=== PATIENT | female | born 1985 | race African-American/Black ===

== ENCOUNTER 2021-02-03 10:59 | Outpatient (CLI) | payer OTHER ==
[2021-02-04 10:22] LABS: SARS-CoV-2 PCR by NAA Not Detected (NotDetected)
== END 2021-02-03 11:00 | disposition home or self-care (01) ==
LOC: CSHLAB 10:59
PROVIDERS: ATTEND Obstetrics & Gynecology
DX: Z20.822 Contact with and (suspected) exposure to COVID-19 (principal)
CPT/HCPCS: U0003; U0005

== ENCOUNTER 2021-02-04 19:15 | Inpatient (IN) | payer OTHER ==
[2021-02-04] MEDS ORDERED: Acetaminophen 500 MG TAB PO PRN (20:13)
[2021-02-04] MEDS ORDERED: Ibuprofen 800 MG TAB PO PRN (20:13)
[2021-02-04] MEDS ORDERED: Butorphanol Tartrate 1 MG/ML VIAL SLOW IVP PRN (20:13)
[2021-02-04] MEDS ORDERED: Misoprostol 200 MCG TAB PR PRN (20:13)
[2021-02-04] MEDS ORDERED: HYDROcodone/Acetaminophen 5/325 mg Tablet PO PRN (20:13)
[2021-02-04] MEDS ORDERED: Methylergonovine 0.2 MG/ML VIAL IM PRN (20:13)
[2021-02-04] MEDS ORDERED: Promethazine HCl 25 MG/ML VIAL IM PRN (20:13)
[2021-02-04] MEDS ORDERED: Lidocaine 1% (PF) 30 ML VIAL SC PRN (20:13)
[2021-02-04] MEDS ORDERED: Diphenoxylate HCl/Atropine Tablet PO PRN ×2 (20:13)
[2021-02-04] MEDS ORDERED: Ondansetron PF 4 MG/2 ML Vial IVP PRN (20:13)
[2021-02-04] MEDS ORDERED: Carboprost 250 MCG/ML AMP IM PRN (20:13)
[2021-02-04] MEDS ORDERED: hydrALAZINE 20 MG/ML VIAL SLOW IVP PRN (20:13)
[2021-02-04 21:01] LABS: Mean Corpuscular HGB CONC 31.9 g/dL (32.0-36.0); Mean Corpuscular Hemoglobin 27.1 pg (27.0-33.0); Mean Platelet Volume 10.6 fl (7.4-10.4); Platelet Count 228 10x3/uL (150-450); Red Blood Cell (RBC) Count 4.06 10x6/uL (3.90-5.03); White Blood Cell (WBC) Count 7.6 10x3/uL (3.5-10.5)
[2021-02-04 21:18] VITALS: BMI 40.8
[2021-02-04 21:32] LABS: Syphilis Antibody Nonreactive (Nonreactive); Syphilis Antibody Index 0.05 S/CO (<1.00 Non-Reactive)
[2021-02-04 21:34] LABS: Hep B Surf Ag Non-Reactive S/CO (NonReactive)
[2021-02-04] MEDS: Misoprostol 100 MCG TAB VAG SCH (21:45)
[2021-02-04] MEDS ORDERED: NS w/ Oxytocin 30 units 500 ML IVPB SCH (22:00)
[2021-02-04] MEDS ORDERED: NS w/ Oxytocin 30 units 500 ML IV SCH ×2 (22:00)
[2021-02-04] MEDS ORDERED: Terbutaline Sulfate 1 MG/ML VIAL SC SCH (23:45)
[2021-02-05] MEDS ORDERED: Terbutaline Sulfate 1 MG/ML VIAL ONE (01:05)
[2021-02-05] MEDS ORDERED: Azithromycin 500 MG VIAL ONE (01:35)
[2021-02-05] MEDS ORDERED: Fentanyl 2 mcg/Bup 0.1% Cadd 100 ML ONE (02:03)
[2021-02-05] MEDS ORDERED: diphenhydrAMINE 50 MG/ML VIAL IVP PRN (02:55)
[2021-02-05] MEDS ORDERED: Hydrocerin (Eucerin) Cream 120 gm Jar TOP PRN (02:55)
[2021-02-05] MEDS ORDERED: Naloxone HCl 0.4 mg/ml Vial IVP PRN ×2 (02:55)
[2021-02-05] MEDS ORDERED: Ondansetron PF 4 MG/2 ML Vial IVP PRN ×2 (02:55→10:11)
[2021-02-05] MEDS ORDERED: Acetaminophen 325 MG TAB PO PRN (02:55)
[2021-02-05] MEDS ORDERED: Lactated Ringer's 500 ML IV PRN (02:55)
[2021-02-05] MEDS ORDERED: ePHEDrine Sulfate 50 MG/10 ML VIAL SLOW IVP PRN (02:55)
[2021-02-05] MEDS ORDERED: Promethazine HCl 25 MG/ML VIAL IM PRN ×2 (02:55→10:11)
[2021-02-05] MEDS ORDERED: Communication Order-Pharmacy FS SCH (03:00)
[2021-02-05] MEDS ORDERED: Fentanyl 2 mcg/Bupivacaine 0.1% Cassette 100 ML EPIDURAL SCH (03:00)
[2021-02-05] MEDS: Lactated Ringer's 1,000 ML IV SCH ×2 (06:24→09:34)
[2021-02-05] MEDS: Misoprostol 100 MCG TAB VAG SCH ×2 (09:34→12:18)
[2021-02-05] MEDS ORDERED: HYDROcodone/Acetaminophen 5/325 mg Tablet PO PRN (10:11)
[2021-02-05] MEDS ORDERED: Bisacodyl 10 MG SUPP PR PRN (10:11)
[2021-02-05] MEDS ORDERED: Zolpidem Tartrate 5 MG TAB PO PRN (10:11)
[2021-02-05] MEDS ORDERED: Misoprostol 200 MCG TAB VAG PRN (10:11)
[2021-02-05] MEDS ORDERED: NS w/ Oxytocin 30 units 500 ML IV SCH (10:11)
[2021-02-05] MEDS ORDERED: Varicella virus, LIVE 0.5 ML VIAL SC ONE (10:11)
[2021-02-05] MEDS ORDERED: Milk Of Magnesia 30 ML UDCUP PO PRN (10:11)
[2021-02-05] MEDS ORDERED: Boostrix 0.5 ML (Tdap) VIAL IM ONE (10:11)
[2021-02-05] MEDS ORDERED: hydrALAZINE 20 MG/ML VIAL SLOW IVP PRN (10:11)
[2021-02-05] MEDS ORDERED: diphenhydrAMINE 25 MG CAP PO PRN (10:11)
[2021-02-05] MEDS ORDERED: Preparation H Ointment 28 GM TUBE PR PRN (10:11)
[2021-02-05] MEDS ORDERED: Lanolin Ointment 7 GM TUBE TOP PRN (10:11)
[2021-02-05] MEDS ORDERED: Benzocaine-Menthol 82.5 ML CAN TOP PRN (10:11)
[2021-02-05] MEDS ORDERED: Methylergonovine 0.2 MG/ML VIAL IM PRN (10:11)
[2021-02-05] MEDS ORDERED: Measles/Mumps/Rubella 10 MCG/0.5 ML VIAL SC ONE (10:11)
[2021-02-05] MEDS: Ibuprofen 800 MG TAB PO SCH ×2 (14:11→21:04)
[2021-02-05] MEDS: Ferrous Sulfate 325 MG TAB PO SCH (17:49)
[2021-02-05] MEDS: Docusate Calcium (SURFAK) 240 MG CAP PO SCH (21:04)
[2021-02-06] MEDS: Ibuprofen 800 MG TAB PO SCH (05:12)
[2021-02-06 05:29] LABS: Hemoglobin 9.4 g/dL (12.0-15.5); Mean Corpuscular HGB CONC 32.4 g/dL (32.0-36.0); Mean Corpuscular Hemoglobin 27.4 pg (27.0-33.0); Mean Corpuscular Volume 84.5 fl (81.6-98.3); Mean Platelet Volume 10.6 fl (7.4-10.4); Platelet Count 184 10x3/uL (150-450); RBC Distribution Width 16.5 % (11.5-14.5); Red Blood Cell (RBC) Count 3.43 10x6/uL (3.90-5.03); White Blood Cell (WBC) Count 8.8 10x3/uL (3.5-10.5)
[2021-02-06 08:01] VITALS: BP 103/57; TEMP 98.6
[2021-02-06] MEDS: Docusate Calcium (SURFAK) 240 MG CAP PO SCH (08:31)
[2021-02-06] MEDS: Ferrous Sulfate 325 MG TAB PO SCH (08:31)
[2021-02-06] MEDS ORDERED: Prenatal Vitamin 1 TAB PO SCH (09:00)
== END 2021-02-06 11:40 | disposition home or self-care (01) | DRG 807 ==
LOC: CSHLD 20:00 → CSHPP 02-05 09:10
PROVIDERS: ADMIT Obstetrics & Gynecology; ATTEND Obstetrics & Gynecology
PROC: 10E0XZZ Delivery of Products of Conception, External Approach (ICD-10-PCS; principal; 2021-02-05)
PROC: 10907ZC Drainage of Amniotic Fluid, Therapeutic from Products of Conception, Via Natural or Artificial Opening (ICD-10-PCS; 2021-02-05)
PROC: 3E0P7VZ Introduction of Hormone into Female Reproductive, Via Natural or Artificial Opening (ICD-10-PCS; 2021-02-05)
PROC: 3E033VJ Introduction of Other Hormone into Peripheral Vein, Percutaneous Approach (ICD-10-PCS; 2021-02-05)
DX: O99.214 Obesity complicating childbirth (principal); Z37.0 Single live birth; E66.01 Morbid (severe) obesity due to excess calories; O76 Abnormality in fetal heart rate and rhythm complicating labor and delivery; O24.429 Gestational diabetes mellitus in childbirth, unspecified control; Z3A.38 38 weeks gestation of pregnancy
CPT/HCPCS: 36415; 85027; 86780; 86850; 86900; 86901; 87340; J3105; J7120